=== PATIENT | male | born 1950 ===

== ENCOUNTER → 2021-08-11 14:28 | Outpatient (BNVA) | payer MEDICARE, SELFPAY | PROVIDERS: PCP Internal Medicine; Referring Provider Internal Medicine; Visit Provider Internal Medicine Cardiovascular Disease | DX: I49.3 Ventricular premature depolarization (principal); I10 Essential (primary) hypertension | CPT/HCPCS: 93005; 99212 ==

== ENCOUNTER 2022-07-15 06:55 | Outpatient (REF) | payer OTHER, SELFPAY ==
[2022-07-15 07:03] LABS: MANUAL DIFF FLAG NO
[2022-07-15 07:35] LABS: Basophils Percent Auto 0.4 % (0-2); Eosinophils Absolute Auto 0.1 X10*3/uL (0.0-0.4); Eosinophils Percent Auto 2.9 % (0-4); Hematocrit 39.8 % (42.0-52.0); Hemoglobin 13.3 g/dl (14.0-18.0); Imm Gran Abs Auto 0.01 X10*3/uL (0.00-0.03); Imm Gran Pct Auto 0.2 % (0.0-0.4); Immature Retic Fraction 10.1 % (2.3-13.4); Lymphocytes Absolute Auto 1.8 X10*3/uL (1.2-4.9); Lymphocytes Percent Auto 39.3 % (20-40); Mean Corpuscular HGB Conc 33.4 g/dl (31.0-36.0); Mean Corpuscular Hemoglobin 29.6 pg (27.0-33.0); Mean Corpuscular Volume 88.6 fL (80.0-98.0); Mean Platelet Volume 9.4 fL (9.4-12.4); Monocytes Absolute Auto 0.4 X10*3/uL (0.1-1.2); Monocytes Percent Auto 9.5 % (2-11); Neutrophils Absolute Auto 2.2 x10*3/uL (2.0-8.3); Neutrophils Percent Auto 47.7 % (45-73); Platelet Count 193 X10*3/uL (160-400); Red Blood Count 4.49 X10*6/uL (4.60-5.80); Red Cell Distribution Width 12.4 % (11.0-16.0); Retic HGB Equivalent 35.2 pg (30.0-35.0); Reticulocyte Percent 1.4 % (0.5-1.8); Reticulocytes Absolute 0.062 X10*6/uL (0.026-0.095); White Blood Count 4.6 X10*3/uL (4.8-10.8)
[2022-07-15 07:48] LABS: Estimated Average Glucose 114 mg/dL; Hemoglobin A1c % 5.6 %
[2022-07-15 08:29] LABS: Alanine Aminotransferase 17 U/L (0-40); Albumin Level 4.3 g/dL (3.5-5.0); Alkaline Phosphatase 84 U/L (39-117); Anion Gap 15 (12-20); Aspartate Amino Transferase 25 U/L (5-37); Bilirubin Total 0.5 mg/dL (0.0-1.0); Blood Urea Nitrogen 8 mg/dL (9-16); Calcium 9.6 mg/dL (8.4-10.2); Carbon Dioxide 28 mmol/L (22-29); Chloride 105 mmol/L (96-108); Cholesterol 195 mg/dL; Estimated Glomerular Filt Rate > 60; Glucose Random 99 mg/dL (60-115); HDL Cholesterol 52 mg/dL; Iron 152 mcg/dL (45-160); LDL Cholesterol Calculated 113 mg/dl; Percent Iron Saturation 55 % (15-50); Potassium 4.2 mmol/L (3.3-5.1); Sodium 144 mmol/L (135-145); Total Iron Binding Capacity 274 mcg/dL (228-428); Triglycerides 150 mg/dL; Unsaturated Iron Binding 122 ug/dL
[2022-07-15 08:31] LABS: Ferritin 104 ng/mL (20-250); Free T4 (Free Thyroxine) 1.03 ng/dL (0.71-1.85); Thyroid Stimulating Hormone 3.51 uIU/mL (0.32-4.0)
[2022-07-15 08:46] LABS: Folate 15.6 ng/mL (> or = 4.0); Vitamin B12 251 pg/mL (200-900)
== END 2022-07-15 06:56 | disposition home or self-care (01) ==
LOC: HO.LAB 06:55
PROVIDERS: PCP Internal Medicine; Visit Provider Internal Medicine
DX: E78.00 Pure hypercholesterolemia, unspecified (principal); D64.9 Anemia, unspecified; R73.01 Impaired fasting glucose
CPT/HCPCS: 36415; 80053; 80061; 82607; 82728; 82746; 83036; 83540; 84439; 84443; 85025; 85045

== ENCOUNTER 2022-11-09 07:14 | Outpatient (REF) | payer OTHER, SELFPAY ==
[2022-11-09 07:21] LABS: MANUAL DIFF FLAG NO
[2022-11-09 07:44] LABS: Basophils Percent Auto 0.4 % (0-2); Eosinophils Absolute Auto 0.2 X10*3/uL (0.0-0.4); Eosinophils Percent Auto 3.5 % (0-4); Hematocrit 40.4 % (42.0-52.0); Hemoglobin 13.4 g/dl (14.0-18.0); Imm Gran Abs Auto 0.01 X10*3/uL (0.00-0.03); Imm Gran Pct Auto 0.2 % (0.0-0.4); Immature Retic Fraction 10.8 % (2.3-13.4); Lymphocytes Absolute Auto 1.7 X10*3/uL (1.2-4.9); Mean Corpuscular HGB Conc 33.2 g/dl (31.0-36.0); Mean Corpuscular Hemoglobin 29.8 pg (27.0-33.0); Mean Corpuscular Volume 89.8 fL (80.0-98.0); Mean Platelet Volume 9.4 fL (9.4-12.4); Monocytes Absolute Auto 0.4 X10*3/uL (0.1-1.2); Neutrophils Absolute Auto 2.2 x10*3/uL (2.0-8.3); Neutrophils Percent Auto 48.9 % (45-73); Platelet Count 211 X10*3/uL (160-400); Retic HGB Equivalent 34.7 pg (30.0-35.0); Reticulocyte Percent 1.4 % (0.5-1.8); Reticulocytes Absolute 0.064 X10*6/uL (0.026-0.095); White Blood Count 4.6 X10*3/uL (4.8-10.8)
[2022-11-09 08:22] LABS: Iron 72 mcg/dL (45-160); Percent Iron Saturation 29 % (15-50); Total Iron Binding Capacity 245 mcg/dL (228-428); Unsaturated Iron Binding 173 ug/dL
[2022-11-09 08:54] LABS: Ferritin 106 ng/mL (20-250); Folate 11.1 ng/mL (> or = 4.0); Vitamin B12 429 pg/mL (200-900)
[2022-11-17 13:09] LABS: Testosterone, Total 429 ng/dL (250-1100)
== END 2022-11-09 07:15 | disposition home or self-care (01) ==
LOC: HO.LAB 07:14
PROVIDERS: PCP Internal Medicine; Visit Provider Internal Medicine
DX: E53.8 Deficiency of other specified B group vitamins (principal); F52.0 Hypoactive sexual desire disorder
CPT/HCPCS: 36415; 82607; 82728; 82746; 83540; 84403; 85025; 85045

== ENCOUNTER 2023-03-09 05:56 | Outpatient (REF) | payer OTHER, SELFPAY ==
[2023-03-09 07:46] LABS: Hematocrit 40.4 % (42.0-52.0); Hemoglobin 13.2 g/dl (14.0-18.0); Mean Corpuscular HGB Conc 32.7 g/dl (31.0-36.0); Mean Corpuscular Hemoglobin 29.6 pg (27.0-33.0); Mean Corpuscular Volume 90.6 fL (80.0-98.0); Platelet Count 190 X10*3/uL (160-400); Red Blood Count 4.46 X10*6/uL (4.60-5.80); Red Cell Distribution Width 12.7 % (11.0-16.0); White Blood Count 4.8 X10*3/uL (4.8-10.8)
[2023-03-09 08:56] LABS: Folate 10.2 ng/mL (> or = 4.0); Vitamin B12 654 pg/mL (200-900)
== END 2023-03-09 05:57 | disposition home or self-care (01) ==
LOC: HO.LAB 05:56
PROVIDERS: PCP Internal Medicine; Visit Provider Nurse Practitioner Family
DX: E53.8 Deficiency of other specified B group vitamins (principal); D64.9 Anemia, unspecified
CPT/HCPCS: 36415; 82607; 82746; 85027

== ENCOUNTER 2023-04-05 06:20 | Outpatient (REF) | payer OTHER, SELFPAY ==
[2023-04-07 11:33] LABS: Lyme Blot 1.44 index
[2023-04-10 13:36] LABS: 18 KD (IgG) Band NON-REACTIVE; 23 KD (IgG) Band NON-REACTIVE; 23 KD (IgM) Band NON-REACTIVE; 28 KD (IgG) Band NON-REACTIVE; 30 KD (IgG) Band NON-REACTIVE; 39 KD (IgM) Band NON-REACTIVE; 39KD (IgG) Band NON-REACTIVE; 41 KD (IgM) Band REACTIVE; 41KD (IgG) Band REACTIVE; 45 KD (IgG) Band NON-REACTIVE; 58 KD (IgG) Band REACTIVE; 66 KD (IgG) Band NON-REACTIVE; 93 KD (IgG) Band REACTIVE; Lyme IgG Blot Interp NEGATIVE (NEGATIVE); Lyme IgM Blot Interp NEGATIVE (NEGATIVE)
[2023-04-10 13:37] LABS: Lyme Abs Screen POSITIVE
== END 2023-04-05 06:21 | disposition home or self-care (01) ==
LOC: HO.LAB 06:20
PROVIDERS: PCP Internal Medicine; Visit Provider Nurse Practitioner Family
DX: R21 Rash and other nonspecific skin eruption (principal)
CPT/HCPCS: 36415; 86617; 86618

== ENCOUNTER 2023-04-08 09:48 | Outpatient (AMB) | payer OTHER, SELFPAY ==
[2023-04-08 09:59] VITALS: BP 140/78; PULSE 59; O2SAT 99; BMI 26.5
--- NOTE | 2023-04-08 09:59 | MHC.PC.OV ---
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 Patient of Dr. Melissa. Patient was seen 1 month ago with rash on his right medial ankle. Patient was treated with doxycycline for 10 days. Patient reports that this rash is improving, although he reports intermittent burning sensation. He did not see any bug bites. 04/05/2023 lyme progressive test is positive, will treat with doxycycline and referred to Infectious Disease for an evaluation. [facility] Medical History Anemia Erectile dysfunction Frequent PVCs Generalized anxiety disorder HTN (hypertension) Hypercholesterolemia Impaired glucose tolerance Vitamin D deficiency Surgical History Cataract No pertinent past surgical history Family History Father No problems noted. Mother No problems noted. Social History Housing: House Alcohol intake: current Alcohol intake frequency: holidays/special occasions only Alcohol type: beer Patient Tobacco Use Status: Never used Tobacco e-Cigarette/Vaping Use: Never Used Second Hand Smoke Exposure: No service: No Current occupational status: retired Cognitive needs: No Hearing needs: No Vision needs: No Questionnaire Thrive Questionnaire Date Thrive assessed: 03/11/23 AUDIT C Alcohol Use Questionnaire (AUDIT-C) 1. How often do you have a drink containing alcohol?: Monthly or less 2. How many drinks containing alcohol do you have on a typical day when you are drinking?: 1 or 2 3. How often do you have six or more drinks on one occasion?: Never Total Score: 1 Score Reviewed/Action Taken: No KRISTI-7 AMB Questionnaire KRISTI-7 Date KRISTI - 7 assessed: 03/10/23 Source: Developed by Drs. Anthony Alanis, Azra Worrell, Bruce Davila and colleagues, with an educational panchito from [employer]. Review of Systems Const Denies body aches, Denies chills, Denies fever(s) and Denies headache(s) Eyes Denies change in vision ENT Denies dizziness, Denies otalgia, Denies headache(s), Denies nasal discharge, Denies sinus pain and Denies sore throat Card Denies chest pain, Denies edema, Denies lightheadedness and Denies dyspnea Resp Denies cough and Denies dyspnea GI Denies abdominal pain Denies dysuria Musc Denies myalgias and Denies arthralgias Skin/Breast Reports rash (Improving) Neuro Denies dizziness and Denies headache(s) Physical exam (Primary Care) Vital Signs: Last Vital Signs Pulse 59 04/08/23 09:59 BP 140/78 H 04/08/23 09:59 Pulse Ox 99 04/08/23 09:59 Oxygen Delivery Method Room Air 04/08/23 09:59 BMI result Body Mass Index 26.5 Tobacco/Smoking Status: Tobacco use Status Tobacco use date assessed 04/08/23 04/08/23 10:04 Patient Tobacco Use Status Never used Tobacco 04/08/23 10:04 e-Cigarette/Vaping Use Never Used 04/08/23 10:04 Thrive Assessment: Date of Thrive Assessment Date Thrive assessed 03/11/23 04/08/23 10:04 Const General: cooperative and no acute distress Orientation/consciousness: patient oriented x3 HENMT Head: Yes normocephalic and Yes atraumatic Mouth: oropharynx normal and moist mucous membranes Throat: Yes posterior oropharynx normal Eyes General: appearance normal, both eyes and all related structures Neck Neck: Yes normal visual inspection and Yes full ROM Resp Effort & Inspection: normal respiratory effort and able to speak in complete sentences Auscultation: clear to auscultation bilaterally, no crackles, no rales, no rhonchi and no wheezes Cardio Rate: regular rate Rhythm: regular rhythm Heart sounds: S1 normal heart sound present and S2 normal heart sound present GI Auscultation: normal bowel sounds Skin Other: Right medial ankle increased pigmentation area 5 cm in diameter nontender, no warmth, patient reports intermittent burning sensation, no signs of infection noted Neuro General: patient oriented x3 Gait exam (Neuro): Normal gait present Extrem General: Yes full ROM and No edema Results Reviewed Results Reviewed: Laboratory Tests 04/05/23 06:39 Lyme Screen IgG & IgM Pending Lyme Progressive Test 1.44 H Assessment and Plan Assessment & Plan (1) Lyme disease: Code(s): A69.20 - Lyme disease, unspecified Plan: Lyme progressive test is positive. Will treat with doxycycline 100 mg b.i.d. for 21 days. Will refer to Infectious Disease for an evaluation and treatment. Patient agreed with the plan. Keep appointment with PCP as scheduled or follow-up sooner as needed. Orders: Referrals Infectious Disease Referral A69.20 - Lyme disease, unspecified Medications: New doxycycline hyclate 100 mg PO Q12H 21 days 42 tabs 0RF A69.20 - Lyme disease, unspecified Coding Level of Care Code Est Pt Level 3 (96668) Diagnoses Lyme disease A69.20
== END 2023-04-08 10:34 | disposition home or self-care (01) ==
PROVIDERS: PCP Internal Medicine; Visit Provider Nurse Practitioner Family
DX: A69.20 Lyme disease, unspecified (principal)
CPT/HCPCS: 99213

== ENCOUNTER 2023-04-20 08:32 | Outpatient (AMB) | payer OTHER, SELFPAY ==
[2023-04-20 08:49] VITALS: BP 140/80; PULSE 58; BMI 26.7
--- NOTE | 2023-04-20 08:49 | A.OFFVIS_ITS ---
Intake Vital Signs 04/20/23 08:49 Height 5 ft 6 in Weight 165 lb 5.547 oz BMI 26.7 BP 140/80 H Blood Pressure Location Lt brachial Position Sitting Pulse 58 Intake Visit Reasons: 1 year follow up/NS Intake Note: 1 year f/u [employer] Consultant Required: No Allergies No Known Allergies [No Known Allergies*] Allergy (Verified 04/20/23 08:57) Medication List - Last Reconciled 04/20/23 by Mylene Patel NP-C cyanocobalamin (vitamin B-12) 1,000 mcg PO DAILY doxycycline hyclate 100 mg PO Q12H 21 days propranolol ER 80 mg PO DAILY HPI 1 year follow up/NS HPI Details Yovany is a 72-year-old male with past medical history of hypertension, hyperlipidemia, impaired fasting glucose, frequent PVCs who presents for follow- up. Today he reports he has been doing generally well since his last visit 08/11/2021. He describes having COVID last July and was sick for 7 days. He feels he has had a full recovery. A few months ago he tried stopping propanolol and reports increased heart palpitations. He now has been taking it daily as directed and he will feel occasional palpitations but not daily. He notices it more if he lays on his left side. He denies any dizziness, presyncope, syncope, falls. No chest discomfort at rest or with activity. No shortness of breath, PND, orthopnea or edema. He reports light physical activity and walking at times for exercise. [facility] Medical History Anemia Erectile dysfunction Frequent PVCs Generalized anxiety disorder HTN (hypertension) Hypercholesterolemia Impaired glucose tolerance Vitamin D deficiency Surgical History Cataract No pertinent past surgical history Family History Father No problems noted. Mother No problems noted. Social History Housing: House Alcohol intake: current Alcohol intake frequency: holidays/special occasions on ly Alcohol type: beer Patient Tobacco Use Status: Never used Tobacco e-Cigarette/Vaping Use: Never Used Second Hand Smoke Exposure: No service: No Current occupational status: retired Cognitive needs: No Hearing needs: No Vision needs: No Review of Systems Const All systems reviewed & are unremarkable except as noted in HPI and below ENT Reports dizziness Card Details: Palpitations, heart skipping Denies chest pain, Denies chest pain at rest, Denies chest pain with activity, Denies rapid heart rate, Denies pedal edema, Denies edema, Denies leg edema, Denies lightheadedness, Denies palpitations, Denies dyspnea, Denies dyspnea on exertion and Denies orthopnea Resp Denies cough, Denies dyspnea and Denies dyspnea on exertion GI Denies hematochezia and Denies change in stool character Musc Denies abnormal gait, Reports limited range of motion, Reports muscle cramps, D enies muscle weakness, Denies numbness, Denies radiating pain into limb, Denies stiffness and Denies tingling Neuro Denies abnormal gait, Reports dizziness, Denies numbness and Denies tingling Endo Denies palpitations Physical Exam Vital Signs: Last Vital Signs Pulse 58 04/20/23 08:49 BP 140/80 H 04/20/23 08:49 BMI result Body Mass Index 26.7 Const General: cooperative, comfortable and no acute distress Orientation/consciousness: patient oriented x3 Neck Neck: Yes normal visual inspection Resp Effort & Inspection: normal respiratory effort Auscultation: clear to auscultation bilaterally, no crackles, no rales, no rhonchi and no wheezes Cardio Jugular venous distension: no JVD Rate: regular rate Rhythm: regular rhythm Heart sounds: S1 normal heart sound present, S2 normal heart sound present, no murmurs and no rubs Neuro General: patient oriented x3 Extrem General: Yes normal to inspection, No no pedal edema and No calf tenderness Psych Appearance: grossly normal Mental Status: mental status grossly normal Speech and movement: Normal speech and movement present Office Procedures EKG Details: Today, read by me, sinus bradycardia, can not rule out old inferior infarct, unchanged from prior EKG, rate 58, QTC 394 millisecond [id number], Complete Assessment & Plan Assessment & Plan (1) Frequent PVCs: Code(s): I49.3 - Ventricular premature depolarization Plan: History of symptomatic PVCs. Cardiac event monitor done for 30 days starting 02/24/2018 showing sinus rhythm with average heart rate 65, range 40 to 139, isolated PVCs and occasional PACs. An echocardiogram done 08/06/2018 showed EF 60-65%. He has been maintained on propanolol 80 mg daily. Today he reports that he tried stopping propanolol and he had increased skipping of his heart. He feels better on this medication. No sustained rapid palpitations. No presyncope, syncope, falls. EKG done today showing sinus bradycardia, can not rule out old inferior infarct which was seen on prior EKG as well, rate 58. No reports of anginal sounding symptoms. Will continue on current med management without change. Instructed to call if he is noticing increasing palpitations or any new chest discomfort or shortness of breath. Cardiology follow-up in 1 year, sooner if needed. (2) Palpitation: Code(s): R00.2 - Palpitations (3) HTN (hypertension): Code(s): I10 - Essential (primary) hypertension Plan: Initial blood pressure 140/80, recheck done by me after sitting for 10 minutes 132/66. Adequately controlled at present. Continue current management. Reviewed low-salt diet, weight control and activity as tolerated. Coding Level of Care Code Est Pt Level 3 (40264) Diagnoses Frequent PVCs I49.3 Palpitation R00.2 HTN (hypertension) I10 CPT Codes EKG - CPT: 75997-[id number], Complete ([id number]) Time Spent (min) 22 Comment Chart review, documentation, interview assessment
== END 2023-04-20 09:35 | disposition home or self-care (01) ==
PROVIDERS: PCP Internal Medicine; Visit Provider Nurse Practitioner Family
DX: I49.3 Ventricular premature depolarization (principal); R00.2 Palpitations; I10 Essential (primary) hypertension
CPT/HCPCS: 93010; 99213

== ENCOUNTER → 2023-04-20 08:32 | Outpatient (BNVA) | payer OTHER, SELFPAY | PROVIDERS: PCP Internal Medicine; Visit Provider Nurse Practitioner Family | DX: I49.3 Ventricular premature depolarization (principal); R00.2 Palpitations; I10 Essential (primary) hypertension | CPT/HCPCS: 93005; 99212 ==

== ENCOUNTER 2023-04-26 13:44 | Outpatient (AMB) | payer OTHER, SELFPAY ==
--- NOTE | 2023-04-26 13:48 | A.OFFVIS_ITS ---
Intake Vital Signs 04/26/23 14:03 Height 5 ft 6 in Weight 168 lb BMI 27.1 BP 120/68 Pulse 68 Pulse Oximetry (%) 98 Intake Visit Reasons: Ref.Marlon Payne Disease Accounting Administrative Assistant Required: No Allergies No Known Allergies [No Known Allergies*] Allergy (Verified 04/26/23 14:05) HPI Ref.Marlon Payne HPI Details He is referred for right leg erythema migrans. He has right ankle skin lesion on 04/08 and is taking po Doxycycline which he has for 21 days. He has negative IgG Lyme but IgM negative ,but has early 41 kd band. He feels well and has no fever or chills. He has no trouble tolerating medication. [facility] Medical History Anemia Erectile dysfunction Frequent PVCs Generalized anxiety disorder HTN (hypertension) Hypercholesterolemia Impaired glucose tolerance Vitamin D deficiency Surgical History Cataract No pertinent past surgical history Family History Father No problems noted. Mother No problems noted. Social History Housing: House Alcohol intake: current Alcohol intake frequency: holidays/special occasions only Alcohol type: beer Patient Tobacco Use Status: Never used Tobacco e-Cigarette/Vaping Use: Never Used Second Hand Smoke Exposure: No service: No Current occupational status: retired Cognitive needs: No Hearing needs: No Vision needs: No Review of Systems Const All systems reviewed & are unremarkable except as noted in HPI and below Physical Exam Vital Signs: Last Vital Signs Pulse 68 04/26/23 14:03 BP 120/68 04/26/23 14:03 Pulse Ox 98 04/26/23 14:03 BMI result Body Mass Index 27.1 Const Other: General: cooperative Orientation/consciousness: patient oriented x3 HEENT Head: Yes normal to inspection Mouth: Normal oral and palatal mucosa present Eyes General: appearance normal, both eyes and all related structures Pupils: Equal, round and reactive pupils present Resp Effort & Inspection: normal respiratory effort Cardio Rate: regular rate Rhythm: regular rhythm GI Palpation (GI): Soft to palpation and nontender General: Yes no CVA tenderness Back/Spine/Pelvis Back: no CVA tenderness Skin Other: resolving skin lesion as right ankle pic #1 shows angry redness and pic #2 shows resolution General skin exam: no rashes or lesions noted Neuro General: patient oriented x3 Cranial nerves: Yes CN's II-XII intact bilaterally and Yes Equal, round and reactive pupils present Extrem General: Yes normal to inspection Psych Appearance: grossly normal Assessment & Plan Assessment & Plan (1) Lyme disease: Comment: He has resolving Lyme rash on ankle but there is no pain in ankle. He has disease caught early so although there are some early bands in Western blot there is not enough to make positive Western blot yet. He has no cardiac or neurologic signs. Code(s): A69.20 - Lyme disease, unspecified Plan: Finish 21 days No further antibiotics or testing needed. Avoid areas with ticks and use permethrin spray and long high socks. Coding Level of Care Code New Pt Level 3 (20008) Diagnoses Lyme disease A69.20
[2023-04-26 14:03] VITALS: BP 120/68; PULSE 68; O2SAT 98; BMI 27.1
== END 2023-04-26 15:33 | disposition home or self-care (01) ==
LOC: HO.HID 13:44
PROVIDERS: PCP Internal Medicine; Visit Provider Internal Medicine
DX: A69.20 Lyme disease, unspecified (principal)
CPT/HCPCS: 99203; 99213

== ENCOUNTER → 2023-04-26 13:44 | Outpatient (BNVA) | payer OTHER, SELFPAY | PROVIDERS: PCP Internal Medicine; Visit Provider Internal Medicine | DX: A69.20 Lyme disease, unspecified (principal) | CPT/HCPCS: 99202 ==

== ENCOUNTER 2024-04-25 12:08 | Outpatient (AMB) | payer OTHER, SELFPAY ==
--- NOTE | 2024-04-25 12:29 | A.OFFVIS_ITS ---
Vital Signs 04/25/24 12:30 Height 5 ft 6 in Weight 165 lb 5.547 oz BMI 26.7 BP 138/80 Blood Pressure Location Lt brachial Position Sitting Pulse 60 Intake Visit Reasons: 1 yr f/up Intake Note: 1 year follow-up with ekg c/o burning in chest when walking Education Courses Sales Representative Required: No Allergies No Known Allergies [No Known Allergies*] Allergy (Verified 04/26/23 14:05) Medication List - Last Reconciled 04/25/24 by Jose Ureña MD propranolol ER 80 mg PO DAILY HPI Comments Details: Yovany comes for follow-up after 1 year. He said over the last many months he has been getting burning sensation chest when he walks 100 yd walk up hills. Does not get symptoms when he is walking downhill. He said he can not charles up a flight of stairs or run because of the symptoms. He occasionally gets symptoms of palpitations but these are not very bothersome to him. He denies any heart failure symptoms. Denies any prolonged palpitation irregular heartbeat. [facility] Medical History Impaired glucose tolerance Erectile dysfunction Generalized anxiety disorder Vitamin D deficiency Hypercholesterolemia Anemia HTN (hypertension) Frequent PVCs Surgical History Cataract No pertinent past surgical history Family History Father No problems noted. Mother No problems noted. Social History Housing: House Alcohol intake: current Alcohol intake frequency: holidays/special occasions only Alcohol type: beer Patient Tobacco Use Status: Never used Tobacco e-Cigarette/Vaping Use: Never Used Second Hand Smoke Exposure: No service: No Current occupational status: retired Cognitive needs: No Hearing needs: No Vision needs: No Review of Systems Const Denies chills, Denies fatigue, Denies fever(s), Denies frequent falls, Denies weakness, Denies weight gain and Denies weight loss ENT Denies dizziness Card Reports chest pain, Denies leg edema, Denies lightheadedness, Denies palpitations, Denies dyspnea, Denies dyspnea on exertion, Denies orthopnea and Denies other (loss of consciousness) Resp Denies cough, Denies dyspnea and Denies dyspnea on exertion GI Denies hematochezia and Denies change in stool character Musc Denies abnormal gait, Denies muscle weakness, Denies numbness, Reports radiating pain into limb and Denies tingling Neuro Denies abnormal gait, Denies dizziness, Denies frequent falls, Denies numbness, Denies tingling and Denies weakness Endo Denies fatigue and Denies palpitations Physical Exam Vital Signs: Last Vital Signs Pulse 60 04/25/24 12:30 BP 138/80 04/25/24 12:30 BMI result Body Mass Index 26.7 Const General: cooperative, comfortable and no acute distress Orientation/consciousness: patient oriented x3 Neck Neck: Yes normal visual inspection Resp Effort & Inspection: normal respiratory effort Auscultation: clear to auscultation bilaterally, no crackles, no rales, no rhonchi and no wheezes Cardio Jugular venous distension: no JVD Rate: regular rate Rhythm: regular rhythm Heart sounds: S1 normal heart sound present, S2 normal heart sound present, no murmurs and no rubs Neuro General: patient oriented x3 Extrem General: Yes normal to inspection, No no pedal edema and No calf tenderness Psych Appearance: grossly normal Mental Status: mental status grossly normal Speech and movement: Normal speech and movement present Office Procedures EKG Details: EKG shows normal sinus rhythm with normal EKG [id number], Complete Assessment & Plan Assessment & Plan (1) Exertional chest pain: Code(s): R07.9 - Chest pain, unspecified Category: Medical Plan: Exertional burning chest discomfort in this elderly gentleman when he rushes, consistent with no symptoms at rest, new onset over the last many months. Symptoms have been consistent. Myocardial ischemia is highly likely given his age and risk factors of hypertension and borderline hyperlipidemia. His baseline EKGs normal. Would suggest exercise stress test to evaluate for exercise capacity as well as to evaluate for ischemia. If this has high risk features may require invasive cardiac catheterization. This was discussed with him. Understands agrees. Will also obtain echocardiogram to evaluate LV systolic and diastolic function to evaluate for other etiology such as LVH and/or pulmonary hypertension. (2) Frequent PVCs: Code(s): I49.3 - Ventricular premature depolarization Category: Medical Plan: Prior history of frequent PVCs which has much improved on therapy with propranolol therapy. He said he was not life-limiting symptoms currently. Advised to avoid stimulants. Continue propranolol therapy. Stress mitigation strategies were discussed. Continue propranolol therapy. Will follow up in the clinic in 6 weeks time after testing. Thank you for allowing me to partake in his care Orders: Orders CA stress test Today R07.9 - Chest pain, unspecified CA echo transthoracic complete Today R07.9 - Chest pain, unspecified Medications: New aspirin (Ecotrin Low Strength) 81 mg PO DAILY 30 tabs 1RF Coding Level of Care Code Est Pt Level 4 (93252) Diagnoses Exertional chest pain R07.9 Frequent PVCs I49.3 CPT Codes EKG - CPT: [id number]-[id number], Complete ([id number])
[2024-04-25 12:30] VITALS: BP 138/80; PULSE 60; BMI 26.7
== END 2024-04-25 12:49 | disposition home or self-care (01) ==
PROVIDERS: PCP Internal Medicine; Visit Provider Internal Medicine Cardiovascular Disease
DX: R07.9 Chest pain, unspecified (principal); I49.3 Ventricular premature depolarization
CPT/HCPCS: 93010; 99214

== ENCOUNTER → 2024-04-25 12:08 | Outpatient (BNVA) | payer OTHER, SELFPAY | PROVIDERS: PCP Internal Medicine; Visit Provider Internal Medicine Cardiovascular Disease | DX: R07.9 Chest pain, unspecified (principal); I49.3 Ventricular premature depolarization | CPT/HCPCS: 93005; 99212 ==

== ENCOUNTER → 2024-06-22 08:40 | Outpatient (REF) | payer OTHER, SELFPAY ==
--- NOTE | 2024-06-22 08:43 | CA_ITS ---
Acquisition Time: 2024-06-22 09:47:54 Total Exercise Time: 00:05:37 Test Indications: Dyspnea CP PVC'S Medications: PROPRANOLOL ER Protocol: MARTIN Max HR: 126 BPM 86% of Pred: 146 BPM Max BP: 174/080 mmHG Max Work Load: 7.0 METS Exericse stress test exercise 5 min 37 sec of Martin protocol achieving 86% MPHR, without anginal symptoms, with isolated PACs and PVCs, with normotensive resposne to exercise, without EKG changes. Test reviewed with Dr. Choudhary. Referred By: Jose Ureña Overread By: Elle Walker
--- NOTE | 2024-06-22 08:43 | CA_ITS ---
Transthoracic Echocardiogram Patient (Last, First, Middle): Yovany Stone R Gender: Male Date of : 1950 Age: 73 Procedure Date: 06/22/2024 Procedure Type: Transthoracic Echocardiogram Location: OP Height: 170.18 cm Weight: 72.58 kg BSA: 1.84 m2 Heart Rate: bpm BP: 130 / 84 mmHg Culinary Chef: ROBERTA Referring MD: Jose Ureña MD Watch Adjuster: Jose Ureña MD Symptoms: R07.9 - Chest pain, unspecified Study Quality: Fair ECG Rhythm: Sinus Conclusions: - 1. Normal LV ejection fraction of 60 65% with impaired relaxation filling pattern 2. Normal cardiac valvular Dopplers 3. Normal RV systolic pressure 4. No gross pericardial effusion Findings Left Ventricle Normal left ventricular size, thickness, and systolic function. The visually estimated ejection fraction is between 60-65%. Spectral Doppler is indicative of an impaired relaxation filling pattern. E/E prime ratio is between 8 and 15 consistent with indeterminate filling pressures. Right Ventricle Normal right ventricular cavity size and systolic function. Atria The left atrium is likely dilated. There is lipomatous hypertrophy of the interatrial septum. There is no evidence of interatrial shunt. The right atrium is normal in size. Aortic Valve The aortic valve structure and function is likely normal. There is no aortic valve stenosis. There is no aortic valve regurgitation. Mitral Valve There is mild anterior and posterior mitral leaflet thickening. There is mild mitral annular calcification. There is trace mitral valve regurgitation. There is no mitral valve stenosis. Pulmonic Valve The pulmonic valve is likely normal. Tricuspid Valve Normal tricuspid valve structure. There is mild tricuspid valve regurgitation. The right ventricular systolic pressure is normal. The right ventricular systolic pressure is 27 mmHg. Normal right atrial pressure. There is no evidence of pulmonary hypertension. Great Vessels All visible segments of the aorta are normal in size. The pulmonary artery was not well visualized. There is no dilatation of the ascending aorta measuring 3.30 cm. Venous The inferior vena cava is normal in size and collapses greater than 50% with inspiration. Pericardium/Pleural There is no evidence of pericardial effusion. Prior Study Comparison No significant change compared to prior study dated: 07/27/2018. Measurements 2D Linear Measurements IVSd: 1.00 0.6-0.9/0.6-1.0 cm LVIDd: 4.68 3.9-5.3/4.2-5.9 cm LVIDd Index: 2.54 2.4-3.2/2.2-3.1 cm/m2 LVIDs: 3.25 2.0-3.6 cm LVPWd: 0.74 0.7-1.1 cm LA Diam: 3.40 2.7-3.8/3.0-4.0 cm LAIDs Index: 1.85 1.5-2.3 cm/m2 LV Mass: 168.98 67-162/88-224 g LV Mass Index: 91.83 43-95/49-115 g/m2 LVOT Diam: 2.00 3.0+(-)1.3 cm 2D Systolic Function EF 4C: 60.30 >55% EF 2C: 60.70 >55% EF BiP: 60.40 >55% Mitral Valve MV Pk E: 0.73 MV PK A: 0.89 MV Decel Time: 267.00 E/A: 0.80 E'Lateral: 6.64 E'Medial: 5.66 E/E' Med: 12.90 E/E' Lat: 11.00 PHT: 78.00 MVA PHT: 2.82 Decel Bath: 2.73 Aortic Valve AoV Pk Constantin: 1.35 AoV Mn Constantin: 0.92 AoV VTI: 0.34 AoV Pk Grad: 7.00 Aov Mn Grad: 4.00 OTONIEL Cont.VTI: 2.47 LVOT LVOT Pk Constantin: 1.14 LVOT Mn Constantin: 0.68 LVOT VTI: 0.27 LVOT Pk Grad: 5.00 LVOT Mn Grad: 2.00 LVOT Diam: 2.00 LVOT Area: 3.14 Diastolic Function MV Pk E: 0.73 MV Pk A: 0.89 E/A: 0.80 E'Medial: 5.66 E/E' Med: 12.90 E' Laterial: 6.64 E/E' Lat: 11.00 Right Ventricle TAPSE (mm): 23.20 TVS' Constantin: 12.60 Tricuspid Valve TR Pk Constantin: 2.47 TR Pk Grad: 24.00 RA Press: 3.00 RVSP: 27.00 Great Vessels Aorta Sinus of Valsalva: 3.42 2.0-3.[address] Ridge: 2.84 1.7-3.4 cm Ao Asc: 3.30 2.1-3.4 cm Updated in Other Vendor System with Status of Final Jose Ureña MD electronically signed on 06/23/2024 12:53:26 PM with status of Final
== END ==
LOC: HO.CARD 08:40
PROVIDERS: PCP Internal Medicine; Visit Provider Internal Medicine Cardiovascular Disease
DX: R07.9 Chest pain, unspecified (principal)
CPT/HCPCS: 93017; 93306

== ENCOUNTER → 2024-06-22 08:43 | Outpatient (BNV) | payer OTHER, SELFPAY | PROVIDERS: PCP Internal Medicine; Visit Provider Nurse Practitioner | DX: I49.1 Atrial premature depolarization (principal); I49.3 Ventricular premature depolarization | CPT/HCPCS: 93016; 93018; 93320; 93325; 93350 ==

== ENCOUNTER 2024-07-10 14:57 | Outpatient (AMB) | payer OTHER, SELFPAY ==
--- NOTE | 2024-07-10 15:32 | A.OFFVIS_ITS ---
Vital Signs 07/10/24 15:33 Height 5 ft 6 in Weight 165 lb 5.547 oz BMI 26.7 BP 120/74 Blood Pressure Location Lt brachial Position Sitting Pulse 66 Intake Visit Reasons: follow up after testing Intake Note: Follow-up after echo and stress test c/o neck pain [employer] Required: No Allergies No Known Allergies [No Known Allergies*] Allergy (Verified 04/26/23 14:05) Medication List - Last Reconciled 07/10/24 by Mylene Patel NP-C propranolol ER 80 mg PO DAILY HPI HPI follow up after testing: Details: Yovany is a 73-year-old male with past medical history of hypertension, hyperlipidemia, frequent PVCs who reported exertional chest discomfort on last visit. He underwent an exercise stress test and echocardiogram and now presents for follow-up. Today he reports that he no longer gets chest discomfort. He says his prior symptom of burning has resolved. No shortness of breath, PND, orthopnea or edema. He does get heart palpitations but he says they are much less than they used to be. He continues to take propranolol. No lightheadedness, presyncope, syncope, falls. He reports good activity tolerance. [facility] Medical History Impaired glucose tolerance Erectile dysfunction Generalized anxiety disorder Vitamin D deficiency Hypercholesterolemia Anemia HTN (hypertension) Frequent PVCs Surgical History Cataract No pertinent past surgical history Family History Father No problems noted. Mother No problems noted. Social History Housing: House Alcohol intake: current Alcohol intake frequency: holidays/special occasions only Alcohol type: beer Patient Tobacco Use Status: Never used Tobacco e-Cigarette/Vaping Use: Never Used Second Hand Smoke Exposure: No service: No Current occupational status: retired Cognitive needs: No Hearing needs: No Vision needs: No Review of Systems Const Denies chills, Denies fatigue, Denies fever(s), Denies frequent falls, Denies weakness, Denies weight gain and Denies weight loss ENT Denies dizziness Card Denies chest pain, Denies leg edema, Denies lightheadedness, Denies palpitations, Denies dyspnea, Denies dyspnea on exertion, Denies orthopnea and Denies other (loss of consciousness) Resp Denies cough, Denies dyspnea and Denies dyspnea on exertion GI Denies hematochezia and Denies change in stool character Musc Denies abnormal gait, Denies muscle weakness, Denies numbness, Denies radiating pain into limb and Denies tingling Neuro Denies abnormal gait, Denies dizziness, Denies frequent falls, Denies numbness, Denies tingling and Denies weakness Endo Denies fatigue and Denies palpitations Physical Exam Vital Signs: Last Vital Signs Pulse 66 07/10/24 15:33 BP 120/74 07/10/24 15:33 BMI result Body Mass Index 26.7 Const General: cooperative, healthy appearing, comfortable and no acute distress Orientation/consciousness: patient oriented x3 Neck Neck: Yes normal visual inspection and Yes no JVD Chest Chest palpation & inspection: normal inspection of the chest Resp Effort & Inspection: normal respiratory effort Auscultation: clear to auscultation bilaterally, no rales, no rhonchi and no wheezes Cardio Jugular venous distension: no JVD Rate: regular rate Rhythm: regular rhythm Heart sounds: S1 normal heart sound present, S2 normal heart sound present, no murmurs and no rubs Neuro General: patient oriented x3 Extrem General: Yes normal to inspection Psych Appearance: grossly normal Mental Status: mental status grossly normal Speech and movement: Normal speech and movement present Assessment & Plan Assessment & Plan (1) Exertional chest pain: Code(s): R07.9 - Chest pain, unspecified Category: Medical Plan: On last visit he reported exertional chest burning. EKG done that day shows normal sinus rhythm with no acute ST or T-wave abnormalities, rate 60. Does have cardiac risk factors of age, hypertension, hyperlipidemia. He underwent an echocardiogram on 06/22/2024 showing EF 60-65%, no valve abnormalities no regional wall motion abnormalities. He had an exercise stress test on 06/22/2024 with exercise 5-1/2 minutes with no anginal symptoms or EKG changes of ischemia. Today he reports that he no longer gets chest burning. Spent time reviewing the signs and symptoms of angina. Continue with risk factor modification. Cardiology follow-up 6 months, sooner if needed for clinical re-evaluation. If he has recurrent symptoms then plan for an exercise nuclear stress test. (2) Palpitation: Code(s): R00.2 - Palpitations Category: Medical Plan: Patient with known history of frequent PVCs. He does report intermittent heart palpitations. Overall symptoms are much improved with the use of propranolol. Heart tones regular on examination. No med change made. (3) Frequent PVCs: Code(s): I49.3 - Ventricular premature depolarization Category: Medical Plan: As above (4) HTN (hypertension): Code(s): I10 - Essential (primary) hypertension Category: Medical Plan: Well controlled at this time. No med changes made. Continue propranolol. Plan Time spent on chart review, documentation, interview and assessment Coding Level of Care Code Est Pt Level 4 (30710) Diagnoses Exertional chest pain R07.9 Palpitation R00.2 Frequent PVCs I49.3 HTN (hypertension) I10 Time Spent (min) 28
[2024-07-10 15:33] VITALS: BP 120/74; PULSE 66; BMI 26.7
== END 2024-07-10 16:02 | disposition home or self-care (01) ==
PROVIDERS: PCP Internal Medicine; Visit Provider Nurse Practitioner Family
DX: R07.9 Chest pain, unspecified (principal); R00.2 Palpitations; I49.3 Ventricular premature depolarization; I10 Essential (primary) hypertension
CPT/HCPCS: 99214

== ENCOUNTER → 2024-07-10 14:57 | Outpatient (BNVA) | payer OTHER, SELFPAY | PROVIDERS: PCP Internal Medicine; Visit Provider Nurse Practitioner Family | DX: I10 Essential (primary) hypertension (principal); I49.3 Ventricular premature depolarization; E78.5 Hyperlipidemia, unspecified; R07.9 Chest pain, unspecified; R00.2 Palpitations | CPT/HCPCS: 99212 ==

== ENCOUNTER 2025-01-11 12:47 | Outpatient (AMB) | payer MEDICARE, SELFPAY ==
[2025-01-11 12:53] VITALS: BP 132/60; PULSE 60; BMI 26.8
--- NOTE | 2025-01-11 12:53 | MHC.OFFVIS ---
Vital Signs 01/11/25 12:53 Height 5 ft 6 in Weight 166 lb 3.657 oz BMI 26.8 BP 132/60 Blood Pressure Location Lt brachial Position Sitting Pulse 60 Pulse Source Pulse Oximeter Intake Visit Reasons: 6 mth f/up [employer]r Required: No Allergies No Known Allergies [No Known Allergies*] Allergy (Verified 01/11/25 12:56) Medication List - Last Reconciled 01/11/25 by Mylene Patel, SANTI-C propranolol ER 80 mg PO DAILY HPI HPI 6 mth f/up: Details: Yovany is a 74-year-old male with past medical history of hypertension, hyperlipidemia, frequent PVCs, prior reports of chest discomfort who presents for follow-up. Today he reports that he no longer gets chest discomfort. He says his prior symptom of burning has not reoccurred. No shortness of breath, PND, orthopnea or edema. He does get heart palpitations but he says they are much less than they used to be. He says he notices it most when he lays on his left side. He continues to take propranolol. No lightheadedness, presyncope, syncope, falls. He reports good activity tolerance. [facility] Medical History Impaired glucose tolerance Erectile dysfunction Generalized anxiety disorder Vitamin D deficiency Hypercholesterolemia Anemia HTN (hypertension) Frequent PVCs Surgical History Cataract No pertinent past surgical history Family History Father No problems noted. Mother No problems noted. Social History Housing: House Alcohol intake: current Alcohol intake frequency: holidays/special occasions only Alcohol type: beer Patient Tobacco Use Status: Never used Tobacco e-Cigarette/Vaping Use: Never Used Second Hand Smoke Exposure: No service: No Current occupational status: retired Cognitive needs: No Hearing needs: No Vision needs: No Review of Systems Const All systems reviewed & are unremarkable except as noted in HPI and below ENT Denies dizziness Card Details: heart palpitation - skipping Denies chest pain, Denies chest pain at rest, Denies chest pain with activity, Denies rapid heart rate, Denies pedal edema, Denies edema, Denies leg edema, Denies lightheadedness, Denies palpitations, Denies dyspnea, Denies dyspnea on exertion and Denies orthopnea Resp Denies cough, Denies dyspnea and Denies dyspnea on exertion GI Denies hematochezia and Denies change in stool character Musc Denies abnormal gait, Reports limited range of motion, Reports muscle cramps, Denies muscle weakness, Denies numbness, Denies radiating pain into limb, Denies stiffness and Denies tingling Neuro Denies abnormal gait, Denies dizziness, Denies numbness and Denies tingling Endo Denies palpitations Physical Exam Vital Signs: Last Vital Signs Pulse 60 01/11/25 12:53 BP 132/60 01/11/25 12:53 BMI result Body Mass Index 26.8 Const General: cooperative, healthy appearing, comfortable and no acute distress Orientation/consciousness: patient oriented x3 Neck Neck: Yes normal visual inspection and Yes no JVD Resp Effort & Inspection: normal respiratory effort Auscultation: clear to auscultation bilaterally, no rales, no rhonchi and no wheezes Cardio Rate: regular rate Rhythm: regular rhythm Heart sounds: S1 normal heart sound present, S2 normal heart sound present, no gallops, no murmurs and no rubs Neuro General: patient oriented x3 Extrem General: Yes normal to inspection, No no pedal edema and No calf tenderness Psych Appearance: grossly normal Mental Status: mental status grossly normal Speech and movement: Normal speech and movement present Assessment & Plan Assessment & Plan (1) Palpitation: Code(s): R00.2 - Palpitations Category: Medical Plan: Known history of frequent PVCs and has been on propranolol with improvement. He continues to report intermittent heart palpitations, like his heart is skipping. He declines the need for further evaluation at this time. Instructed to call this office if he notices increasing or prolonged heart palpitations and Holter monitor will be ordered. Last echo shows normal EF. Continue propranolol. Cardiology follow-up in 1 year, sooner if needed. (2) Exertional chest pain: Code(s): R07.9 - Chest pain, unspecified Category: Medical Plan: Prior reports of exertional chest burning which has since fully resolved. Cardiac testing showed no acute findings: Echocardiogram on 06/22/2024 showing EF 60-65%, no valve abnormalities no regional wall motion abnormalities. He had an exercise stress test on 06/22/2024 with exercise 5-1/2 minutes with no anginal symptoms or EKG changes of ischemia. He has cardiac risk factors of age, hypertension and hyperlipidemia. Cardiac risk factor modification reviewed. Signs and symptoms of angina reviewed. If he has recurrent symptoms then plan for an exercise nuclear stress test. (3) Frequent PVCs: Code(s): I49.3 - Ventricular premature depolarization Category: Medical Plan: As above (4) HTN (hypertension): Code(s): I10 - Essential (primary) hypertension Category: Medical Plan: Well controlled at this time. No med changes made. Continue propranolol. Plan Time spent on chart review, documentation, interview and assessment Medications: Refilled propranolol ER 80 mg PO DAILY 90 caps 3RF Coding Level of Care Code Est Pt Level 3 (00010) Complex EM visit Add On G2211 Diagnoses Palpitation R00.2 Exertional chest pain R07.9 Frequent PVCs I49.3 HTN (hypertension) I10 Time Spent (min) 22
== END 2025-01-11 13:13 | disposition home or self-care (01) ==
LOC: HO.HCS 12:48
PROVIDERS: PCP Internal Medicine; Visit Provider Nurse Practitioner Family
DX: R00.2 Palpitations (principal); R07.9 Chest pain, unspecified; I49.3 Ventricular premature depolarization; I10 Essential (primary) hypertension
CPT/HCPCS: 99213; G2211

== ENCOUNTER → 2025-01-11 12:47 | Outpatient (BNVA) | payer MEDICARE, SELFPAY | PROVIDERS: PCP Internal Medicine; Visit Provider Nurse Practitioner Family | DX: R07.9 Chest pain, unspecified (principal); R00.2 Palpitations; I49.3 Ventricular premature depolarization; I10 Essential (primary) hypertension | CPT/HCPCS: 99212 ==